=== PATIENT | male | born 1995 | race Caucasian/White ===

== ENCOUNTER 2017-01-13 07:06 | Emergency (ER) | payer SELFPAY ==
[2017-01-13 07:46] LABS: BASOPHIL % 0.5 % (0-2); PLATELET COUNT 226 x10^3mcL (130-400); RED CELL DISTRIBUTION WIDTH 13.3 % (11.5-14.5)
[2017-01-13 07:53] LABS: CALCIUM 9.6 mg/dL (8.5-10.1); CHLORIDE SERUM 101 mmol/L (98-107); CREATININE SERUM 1.4 mg/dL (0.7-1.3); GFR1 > 60 mL/min; GLUCOSE SERUM 126 mg/dL (74-106); POTASSIUM SERUM 3.7 mmol/L (3.5-5.1); SODIUM SERUM 139 mmol/L (136-145)
[2017-01-13 07:57] LABS: ALBUMIN 4.7 g/dL (3.4-5.0); ALKALINE PHOSPHATASE 86 U/L (46-116); ALT/SGPT 25 U/L (16-63); AMYLASE 44 U/L (25-115); AST/SGOT 20 U/L (15-37); BILIRUBIN TOTAL 0.6 mg/dL (0.20-1.00); LIPASE 94 IU/L (73-393)
[2017-01-13 08:14] LABS: AMPHETAMINE QUAL UR POSITIVE (NEG <=1000)
[2017-01-13 08:39] VITALS: BP 125/87
== END 2017-01-13 08:39 | disposition home or self-care (01) ==
LOC: ED 07:06
PROVIDERS: Emergency Medicine
DX: R10.9 Unspecified abdominal pain (principal); F15.90 Other stimulant use, unspecified, uncomplicated; F12.90 Cannabis use, unspecified, uncomplicated
CPT/HCPCS: 83880

== ENCOUNTER 2017-06-26 05:59 | Emergency (ER) | payer SELFPAY ==
[~2017-06-26] VITALS: Ht 167.6 cm; Wt 71.7 kg
[2017-06-26 06:49] VITALS: BP 132/72
== END 2017-06-26 08:20 | disposition home or self-care (01) ==
LOC: ED 05:59
DX: A56.01 Chlamydial cystitis and urethritis (principal)
CPT/HCPCS: 87491; 87591